=== PATIENT | male | born 1950 | race Caucasian/White ===

== ENCOUNTER → 2024-12-31 12:02 | Outpatient (REF) | payer OTHER, SELFPAY | LOC: RAD 12:02 | PROVIDERS: ATTENDING PHYSICIAN Specialist | DX: N30.20 Other chronic cystitis without hematuria (principal) | CPT/HCPCS: 74176 ==

== ENCOUNTER 2025-01-17 06:19 | Day surgery (SDC) | payer OTHER, SELFPAY ==
[2025-01-14 08:55] LABS: Hematocrit 51.1 % (39.0-52.0); Hemoglobin 17.5 g/dL (13.0-18.0); Mean Corp Hgb Conc. 34.2 g/dL (33.0-37.0); Mean Corpuscular Volume 89.5 fL (80.0-94.0); Platelet Count 200 10^3/uL (130-400); Red Cell Dist. Width 14.6 % (11.5-14.5)
[2025-01-14 09:28] LABS: ALT (SGPT) 44 U/L (0-50); AST (SGOT) 27 U/L (17-59); Alkaline Phosphatase 73 U/L (38-126); Blood Urea Nitrogen 28 mg/dl (9-20); Calcium 9.4 mg/dl (8.4-10.2); Carbon Dioxide 31 mmol/L (22-30); Chloride 103 mmol/L (98-107); Glucose 91 mg/dl (70-99); Potassium 4.1 mmol/L (3.5-5.1); Sodium 140 mmol/L (135-145); Total Protein 6.7 g/dl (6.3-8.2); eGFR 58.01
[2025-01-14 09:44] LABS: Albumin 4.5 g/dl (3.5-5.0)
[2025-01-14 13:53] VITALS: BMI 31.2
[2025-01-17] VITALS (20 sets, daily range): BP systolic 145–182; BP diastolic 77–108; BMI 31.2
[2025-01-17 08:12] LABS: Glucose - Point of Care 92 mg/dl (70-99)
[2025-01-17] MEDS: NORMOSOL-R/PLASMALYTE-A 1000 IV (08:20)
[2025-01-17] MEDS: VANCOCIN 530 MG IV (08:38)
--- NOTE | 2025-01-17 10:44 | W.PN.ADMIT ---
Progress Note - Admit
Progress Note - Admit
pt with chronic UTI/prostatitis and BPH
underwent cysto/dilation and TURP
admit for cbi and antibx
[2025-01-17 10:55] LABS: Glucose - Point of Care 120 mg/dl (70-99)
[2025-01-17 11:19] LABS: Hematocrit 48.8 % (39.0-52.0); Hemoglobin 16.9 g/dL (13.0-18.0); Mean Corp Hgb Conc. 34.6 g/dL (33.0-37.0); Mean Corpuscular Volume 88.4 fL (80.0-94.0); Platelet Count 163 10^3/uL (130-400); Red Cell Dist. Width 14.6 % (11.5-14.5)
[2025-01-17 11:38] LABS: Blood Urea Nitrogen 23 mg/dl (9-20); Calcium 8.2 mg/dl (8.4-10.2); Carbon Dioxide 27 mmol/L (22-30); Chloride 104 mmol/L (98-107); Estimated Creatinine Clearance 75 ml/min; Glucose 124 mg/dl (70-99); Potassium 4.0 mmol/L (3.5-5.1); Sodium 138 mmol/L (135-145); eGFR > 60.00
[2025-01-17] MEDS: APRESOLINE 10 MG IV (13:06)
[2025-01-17] MEDS: AMOXIL 500 MG PO ×2 (13:09→18:00)
[2025-01-17] MEDS: NSS 1000 IV (15:11)
[2025-01-17 16:31] LABS: Glucose - Point of Care 175 mg/dl (70-99)
[2025-01-17] MEDS: GLUCOPHAGE 500 MG PO (16:58)
[2025-01-17] MEDS: COLACE 100 MG PO (19:59)
[2025-01-17] MEDS: FLORASTOR 250 MG PO (20:00)
[2025-01-17 21:31] LABS: Glucose - Point of Care 133 mg/dl (70-99)
[2025-01-18] MEDS: AMOXIL 500 MG PO ×3 (02:25→18:05)
[2025-01-18] MEDS: NSS 1000 IV (02:57)
[2025-01-18 03:20] VITALS: BP 134/99
[2025-01-18 06:59] LABS: Hematocrit 50.2 % (39.0-52.0); Hemoglobin 17.2 g/dL (13.0-18.0); Mean Corp Hgb Conc. 34.3 g/dL (33.0-37.0); Mean Corpuscular Volume 88.1 fL (80.0-94.0); Platelet Count 206 10^3/uL (130-400); Red Cell Dist. Width 14.6 % (11.5-14.5)
[2025-01-18 07:08] LABS: Glucose - Point of Care 124 mg/dl (70-99)
[2025-01-18 07:15] LABS: Blood Urea Nitrogen 20 mg/dl (9-20); Calcium 8.3 mg/dl (8.4-10.2); Carbon Dioxide 30 mmol/L (22-30); Chloride 103 mmol/L (98-107); Estimated Creatinine Clearance 67 ml/min; Glucose 120 mg/dl (70-99); Potassium 4.0 mmol/L (3.5-5.1); Sodium 138 mmol/L (135-145); eGFR > 60.00
[2025-01-18 07:35] VITALS: BP 177/86
[2025-01-18] MEDS: GLUCOPHAGE 1000 MG PO ×2 (08:05→17:08)
[2025-01-18] MEDS: CRESTOR 10 MG PO (08:05)
[2025-01-18] MEDS: ORETIC 25 MG PO (08:05)
[2025-01-18] MEDS: CLARITIN 10 MG PO (08:06)
[2025-01-18] MEDS: AVAPRO 300 MG PO (08:06)
[2025-01-18] MEDS: FARXIGA 10 MG PO (08:06)
[2025-01-18] MEDS: COLACE 100 MG PO ×2 (08:07→21:05)
[2025-01-18] MEDS: FLORASTOR 250 MG PO ×2 (08:07→21:05)
[2025-01-18] MEDS: FLOMAX 0.4 MG PO (08:07)
--- NOTE | 2025-01-18 08:53 | CM ---
Cm reviewed medical records. Patient confirmed demographics. Patient does have a history of VN, but does not know the previous agency. Patient does not have a history of SNF. Patient does not rely on any DME at this time. Patient is active with his
PCP. Patient has medication coverage.
Patient and would like support for singh care. CM updated Suzette at [facility] with new referral.
PLAN: Home with [facility].
--- NOTE | 2025-01-18 09:37 | VNURNOTE ---
[facility] liaison met with patient and spouse at bedside to discuss [facility] nurse/therapy, visits, schedule, and homebound status. Patient is aware that [facility] will contact them for start of care in 1-2 days after discharge. [facility] to provide
assessment, management, and teaching with singh catheter. Referral completed in [facility].
--- NOTE | 2025-01-18 10:42 | W.PN.URO.CBU ---
Today's Communication / Plan
-
routine post op care
Assessment / Plan
-
s/p TURP
recurrent enterococcal UTI
continue cbi today- off at midnight
on amoxicillin- to continue as outpt
plan if urine clear home tomorrow with singh
Diagnosis
-
Date of Service: January 18, 2025
-
Patient Diagnosis:
chronic UTI/prostatitis
BPH
Post Op Day:
TURP 01/17
Subjective
-
pt feels fine
some intermittent hematuria- but urine clear on moderate drip cbi now
Objective
-
Vital Signs
Temp Pulse Resp BP Pulse Ox
97.8 F 65 16 177/86 96
01/18/25 07:35 01/18/25 08:06 01/18/25 07:35 01/18/25 08:06 01/18/25 07:35
Intake and Output
01/17/25 01/18/25 01/19/25
06:59 06:59 06:59
Intake Total 1920 / 1920 420 / 420
Output Total 3150 / 3150
Balance -1230 / -1230 420 / 420
Intake:
Oral fluids 960 / 960 420 / 420
IV fluids (Total) 960 / 960
Output:
True Urine Output from CBI 3150 / 3150
Laboratory Results
01/18/25 05:49
01/18/25 05:49
Review of Systems
-
Constitutional: No Symptoms
Respiratory: No Symptoms
Cardiac: No Symptoms
Abdomen/GI: No Symptoms
Physical Exam
-
General - well developed, well nourished, no acute distress
Abdomen - soft, non-tender
Genitalia - normal- [address]
Skin - warm & dry with no rash
Neuro - AOx3, no motor deficits
Extremities - no clubbing, no cyanosis, no edema
[2025-01-18 11:06] LABS: Glucose - Point of Care 118 mg/dl (70-99)
[2025-01-18 11:40] VITALS: BP 150/82
[2025-01-18 15:30] VITALS: BP 170/91
[2025-01-18 16:42] LABS: Glucose - Point of Care 91 mg/dl (70-99)
[2025-01-18 21:54] LABS: Glucose - Point of Care 86 mg/dl (70-99)
--- NOTE | 2025-01-18 22:29 | PTCARENOTE ---
pt reports his blood glucose averages 80-100 @[facility], pt provided 4 oz apple juice @ this time and understands the s/s of hypoglycemia.
[2025-01-18 23:13] VITALS: BP 139/80
[2025-01-19] MEDS: AMOXIL 500 MG PO ×2 (03:13→12:07)
[2025-01-19] MEDS: AVAPRO 300 MG PO (07:14)
[2025-01-19] MEDS: FLOMAX 0.4 MG PO (07:15)
[2025-01-19] MEDS: COLACE 100 MG PO (07:15)
[2025-01-19] MEDS: GLUCOPHAGE 1000 MG PO (07:15)
[2025-01-19] MEDS: FARXIGA 10 MG PO (07:15)
[2025-01-19] MEDS: FLORASTOR 250 MG PO (07:15)
[2025-01-19] MEDS: CLARITIN 10 MG PO (07:15)
[2025-01-19] MEDS: ORETIC 25 MG PO (07:15)
[2025-01-19] MEDS: CRESTOR 10 MG PO (07:16)
[2025-01-19 07:30] VITALS: BP 159/91
[2025-01-19 08:06] LABS: Glucose - Point of Care 159 mg/dl (70-99)
--- NOTE | 2025-01-19 10:05 | W.PN.UPDATE ---
Update Note
Progress Note Update
pt stable
urine clear
home today on amoxicillin
--- NOTE | 2025-01-19 10:06 | W.DS.TRANS ---
DC Summary - D[employer]nut [employer]er
-
Discharge Instructions:
Sleep Apnea Risk Intermediate
Discharge Diagnosis/Procedures you had a transurethral resection of the
prostate
Diet No restrictions
Activity No strenuous activity
Additional Activity no strenuous activity/lifting over 10lbs for one
week
Driving Restrictions no driving for 7 days from time of surgery
Bathing Restrictions OK to Shower
Instructions:
Stand-Alone Forms:
Changes to Home Medications: No
Discharge Medications:
DC Medications w/original date entered in [facility]
dulaglutide 1.5 mg/0.5 mL subcutaneous pen injector (Trulicity) 1.5 mg SC QWEEK 01/10/25
empagliflozin 25 mg tablet (Jardiance) 25 mg PO DAILY 01/10/25
ibuprofen 200 mg tablet 1,000 mg PO ONCE PRN Pain 01/10/25
irbesartan 150 mg-hydrochlorothiazide 12.5 mg tablet 2 tab PO DAILY 01/10/25
loratadine 10 mg tablet 20 mg PO DAILY 01/10/25
metformin 500 mg tablet 1,000 mg PO BID 01/10/25
rosuvastatin 10 mg tablet 10 mg PO DAILY 01/10/25
tadalafil 5 mg tablet 5 mg PO DAILY ED 01/10/25
tamsulosin 0.4 mg capsule 0.4 mg PO DAILY 01/10/25
amoxicillin 500 mg capsule 500 mg PO Q8H #42 caps 01/17/25
Home Medication Changes
Pending Results: No
[2025-01-19 12:12] LABS: Glucose - Point of Care 96 mg/dl (70-99)
[2025-01-19 14:12] VITALS: BP 143/78
== END 2025-01-19 14:53 | disposition home or self-care (01) ==
LOC: SDS 06:19
PROVIDERS: ATTENDING PHYSICIAN Specialist; FAMILY PHYSICIAN Internal Medicine
DX: N40.1 Benign prostatic hyperplasia with lower urinary tract symptoms (principal); N39.0 Urinary tract infection, site not specified; N41.9 Inflammatory disease of prostate, unspecified
CPT/HCPCS: 52601; 36415; 80048; 80053; 82962; 85027; 88305; 93005